=== PATIENT | female | born 1940 | race Caucasian/White ===

== ENCOUNTER 2017-05-21 07:29 | Emergency (ER) | payer MEDICARE ==
[~2017-05-21] VITALS: Ht 175.3 cm; Wt 104.3 kg
[~2017-05-21 07:29] MED LIST: ZOFRAN4 MG PO
[2017-05-21] MEDS ORDERED: GABAPENTIN400 MG PO (08:11)
[2017-05-21] MEDS ORDERED: ROSUVASTATIN CAL5 MG PO (08:11)
[2017-05-21] MEDS ORDERED: METOPROLOL SUCC50 MG PO (08:12)
[2017-05-21] MEDS ORDERED: FLOVENT HFA12 G1 INH (08:12)
[2017-05-21] MEDS ORDERED: OXYCODONE HCL5 MG PO (08:13)
[2017-05-21] MEDS ORDERED: METFORMIN HCL750 MG PO (08:13)
[2017-05-21] MEDS ORDERED: OMEPRAZOLE20 MG PO (08:13)
[2017-05-21] MEDS ORDERED: LANTUS SOL100 UNIT/1 SUB-Q (08:14)
[2017-05-21] MEDS ORDERED: LASIX20 MG PO (08:14)
[2017-05-21] MEDS ORDERED: VERAPAMIL ER240 MG PO (08:14)
[2017-05-21] MEDS ORDERED: LEVOTHYROXINE112 MCG PO (08:15)
[2017-05-21] MEDS ORDERED: LOSARTAN POTAS100 MG PO (08:15)
[2017-05-21] MEDS ORDERED: BETAMETHASONE D15 GM (08:15)
[2017-05-21] MEDS ORDERED: FLUOXETINE HCL20 MG (08:15)
[2017-05-21] MEDS ORDERED: FLUTICASONE PRO16 GM NAS (08:16)
[2017-05-21] MEDS ORDERED: MULTI-VITAMIN1 EACH PO (08:17)
[2017-05-21] MEDS ORDERED: CALCIUM + D3 E1 EACH PO (08:17)
[2017-05-21] MEDS ORDERED: ALEVE220 MG PO (08:18)
== END 2017-05-21 08:59 | disposition home or self-care (01) ==
LOC: ED 07:29
DX: R42 Dizziness and giddiness (principal); T42.6X5A Adverse effect of other antiepileptic and sedative-hypnotic drugs, initial encounter; E11.9 Type 2 diabetes mellitus without complications; I10 Essential (primary) hypertension; J45.909 Unspecified asthma, uncomplicated
CPT/HCPCS: 96374; 96375; 99282; J1200; J1885; J2405

== ENCOUNTER 2020-12-20 09:28 | Emergency (ER) | payer MEDICARE ==
[~2020-12-20] VITALS: Ht 175.3 cm; Wt 104.3 kg
[~2020-12-20 09:28] MED LIST changes: +ALEVE220 MG PO; +BETAMETHASONE D15 GM; +CALCIUM + D3 E1 EACH PO; +FLOVENT HFA12 G1 INH; +FLUOXETINE HCL20 MG; +FLUTICASONE PRO16 GM NAS; +GABAPENTIN400 MG PO; +LANTUS SOL100 UNIT/1 SUB-Q; +LASIX20 MG PO; +LEVOTHYROXINE112 MCG PO; +LOSARTAN POTAS100 MG PO; +METFORMIN HCL750 MG PO; +METOPROLOL SUCC50 MG PO; +MULTI-VITAMIN1 EACH PO; +OMEPRAZOLE20 MG PO; +OXYCODONE HCL5 MG PO; +ROSUVASTATIN CAL5 MG PO; +VERAPAMIL ER240 MG PO
[2020-12-20] MEDS ORDERED: HYDROCODON-ACE1 EAC8 PO (12:23)
[2020-12-20] MEDS ORDERED: ZOFRAN4 MG PO (12:23)
[2020-12-20] MEDS ORDERED: TRULICITY1.5 MG/0.5 SQ (12:47)
== END 2020-12-20 12:51 | disposition home or self-care (01) ==
LOC: ED 09:28
DX: S22.42XA Multiple fractures of ribs, left side, initial encounter for closed fracture (principal); W10.9XXA Fall (on) (from) unspecified stairs and steps, initial encounter; E11.9 Type 2 diabetes mellitus without complications; I10 Essential (primary) hypertension; J45.909 Unspecified asthma, uncomplicated; K21.9 Gastro-esophageal reflux disease without esophagitis; Z88.8 Allergy status to other drugs, medicaments and biological substances; Z79.899 Other long term (current) drug therapy; Z79.4 Long term (current) use of insulin
CPT/HCPCS: 71101; 99283-25

== ENCOUNTER 2022-04-19 08:49 | Emergency (ER) | payer MEDICARE ==
[~2022-04-19] VITALS: Ht 175.3 cm; Wt 104.3 kg
[~2022-04-19 08:49] MED LIST changes: +HYDROCODON-ACE1 EAC8 PO; +TRULICITY1.5 MG/0.5 SQ
--- OUTSIDE RECORDS SUMMARY | 2022-04-19 08:52 | XMS ---
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 Brian has no Care Guidelines for this patient. Chrissy VISIT COUNT (12 MO.) 1 JER Mac TOTAL 1 NOTE: Visits indicate total known visits. ED/UCC VISIT TRACKING (12 MO.) 04/19/2022 08:50 J[facility] [place] TYPE: Emergency COMPLAINT: - IV INFUSION FOR FLU SYMPTOMS INPATIENT VISIT TRACKING (12 MO.) No inpatient visits to display in this time frame [email or web address]
== END 2022-04-19 10:38 | disposition home or self-care (01) ==
LOC: ED 08:49
DX: U07.1 COVID-19 (principal); Z23 Encounter for immunization; E11.9 Type 2 diabetes mellitus without complications; I10 Essential (primary) hypertension; J45.909 Unspecified asthma, uncomplicated; K21.9 Gastro-esophageal reflux disease without esophagitis; Z88.8 Allergy status to other drugs, medicaments and biological substances; Z79.899 Other long term (current) drug therapy; Z79.84 Long term (current) use of oral hypoglycemic drugs; Z79.4 Long term (current) use of insulin
CPT/HCPCS: 96374; 99283-25

== ENCOUNTER 2024-08-21 06:30 | Day surgery (SDC) | payer MEDICARE ==
[~2024-08-21] VITALS: Ht 175.3 cm; Wt 93.2 kg
[~2024-08-21 06:30] MED LIST changes: +BAYER CHEWABLE81 MG PO; +CARDURA XL8 MG PO; +COZAAR100 MG PO; +HYDROCHLOROTHIA25 MG PO; +LACTATED RINGER'S 1,000 ML IV SCH; +PULMICORT FLEX90 MCG INH; +TENORMIN50 MG PO; +ZYRTEC10 MG PO
[2024-08-21] MEDS ORDERED: BUPIVACAINE HCL 0.25% 50 ML MDV ONE (06:40)
[2024-08-21 06:51] VITALS: BP 184/61
[2024-08-21] MEDS ORDERED: TRANEXAMIC ACID 2,000 MG in SODIUM CHLORIDE 0.9% 100 ML IV SCH (07:00)
[2024-08-21] MEDS ORDERED: CEFAZOLIN SODIUM 2 GM/20 ML SYR IV SCH (07:00)
[2024-08-21] MEDS ORDERED: LIDOCAINE HCL 1% 5 ML SDV INJ ONE (07:00)
[2024-08-21] MEDS ORDERED: IBLOOD GLUCOSE TEST STRIP 1 EA TEST VI PRN (07:00)
--- NOTE | 2024-08-21 07:41 | NUR ---
VISITED DURING SPIRITUAL CARE ROUNDS. PT SUPPORTED BY FRIEND IN ROOM. BOTH IN GOOD SPIRITS, DENIED IMMEDIATE NEEDS. GEAR HOBBER PROVIDED SUPPORTIVE PRESENCE, HOSPITALITY, PRAYER, FACILITATED INTERACTION WITH THERAPY ANIMAL. PT AND FRIEND EXPRESSED GRATITUDE.
[2024-08-21] MEDS ORDERED: LIDOCAINE HCL 2% 5 ML SDV ONE ×2 (07:44→07:46)
[2024-08-21] MEDS ORDERED: Ropivacaine HCl 0.5% 30 ML VIAL ONE (07:44)
[2024-08-21] MEDS ORDERED: propofoL 200 MG/20 ML VIAL ONE (07:44)
[2024-08-21] MEDS ORDERED: KETOROLAC TROMETHAMINE 30 MG/ML VIAL ONE (07:44)
[2024-08-21] MEDS ORDERED: ondansetron HCL 4 MG/2 ML VIAL ONE (07:44)
[2024-08-21] MEDS ORDERED: SODIUM CHLORIDE 0.9% 20 ML IV ONE (07:44)
[2024-08-21] MEDS ORDERED: HYDROCODONE/ACETA 5/325 TAB PO PRN (08:15)
[2024-08-21] MEDS ORDERED: HYDROCODON-ACE1 EA10 PO (09:02)
--- NOTE | 2024-08-21 09:11 | NUR ---
08/21/24 0910 Caty Novak 0858 PT ARRIVED TO PACU AWAKE AND TALKING TO RN, PT DENIES PAIN AND NAUSEA. PT REPORTS NUMB FINGER AND BLOCK INFORMATION GIVEN. 0907 PT SIPPING WATER AND HOB INCREASED. PT RESTING IN BED AND DENIES CONCERNS.
[2024-08-21 09:34] VITALS: BP 174/69
--- NOTE | 2024-08-21 11:56 | OR ---
[facility] [address], [place] [address] Signed DATE OF OPERATION: 08/21/2024 SURGEON: Micaela Sanchez MD PREOPERATIVE DIAGNOSIS: Mucous cyst, right long finger. POSTOPERATIVE DIAGNOSIS: Mucous cyst, right long finger. PROCEDURE PERFORMED: Excision of mucous cyst, right long finger. ROD BUSTER: None. ANESTHESIA: Digital block with MAC. TOURNIQUET TIME: 10 minutes. BRIEF HISTORY: Christin is an 84-year-old female with a mucous cyst on the right long finger that was breaking, opening and draining intermittently. Risks and benefits of operative excision were discussed with her and she elected to proceed. PROCEDURE IN DETAIL: Once consent was obtained, she was taken to the operating room, left on the day surgery bed with a hand table. The arm was prepped and draped in a standard sterile fashion. A finger tourniquet was fashioned out of the glove tip. This was rolled onto the finger and the cyst and overlying abnormal skin was excised in elliptical fashion. The extensor tendon was then elevated and the underlying osteophyte was removed using curettes and a small rongeur. All cystic components were removed as well. The wound was copiously irrigated with normal saline, closed with 3-0 nylon. The wound was covered with bacitracin, sterile gauze and gauze. A finger tourniquet was released. The patient was awakened, taken to the recovery room in satisfactory condition. All sponge, needle, and instrument counts were correct. Electronically Signed By: MICAELA SANCHEZ MD 08/21/24 1156 PATIENT NAME: CHRISTIN FIGUEROA OPERATIVE REPORT DATE OF : 44 REPORT #: [id number] PHYSICIAN: MICAELA SANCHEZ MD PCP: KORY BOYLE MD REPORT IS CONFIDENTIAL AND NOT TO BE RELEASED WITHOUT AUTHORIZATION [address] [address] Signed Micaela Sanchez MD BA/MODL /[id number] Copies: ~ Electronically Signed By: MICAELA SANCHEZ MD 08/21/24 1156 PATIENT NAME: CHRISTIN FIGUEROA OPERATIVE REPORT DATE OF : 44 REPORT #: [id number] PHYSICIAN: MICAELA SANCHEZ MD PCP: KORY BOYLE MD REPORT IS CONFIDENTIAL AND NOT TO BE RELEASED WITHOUT AUTHORIZATION
== END 2024-08-21 09:46 | disposition home or self-care (01) ==
LOC: DS 06:30
PROVIDERS: ATTEND Specialist
PROC: 0LB70ZZ Excision of Right Hand Tendon, Open Approach (ICD-10-PCS; principal; 2024-08-21 08:50)
DX: M67.441 Ganglion, right hand (principal); E11.9 Type 2 diabetes mellitus without complications; I10 Essential (primary) hypertension; E78.5 Hyperlipidemia, unspecified; K21.9 Gastro-esophageal reflux disease without esophagitis; Z87.891 Personal history of nicotine dependence; Z79.4 Long term (current) use of insulin; Z79.899 Other long term (current) drug therapy; Z88.8 Allergy status to other drugs, medicaments and biological substances; Z90.49 Acquired absence of other specified parts of digestive tract
CPT/HCPCS: 01810; J0690; J1885; J2001; J2405; J2704; J2795; J7121

== ENCOUNTER 2024-11-05 16:14 | Emergency (ER) | payer MEDICARE ==
[~2024-11-05] VITALS: Ht 175.3 cm; Wt 91.0 kg
[~2024-11-05 16:14] MED LIST changes: +HYDROCODON-ACE1 EA10 PO; -LACTATED RINGER'S 1,000 ML IV SCH
[2024-11-05] MEDS ORDERED: ASPIRIN 81 MG CHEW PO ONE (16:30)
[2024-11-05] MEDS ORDERED: ondansetron HCL 4 MG/2 ML VIAL IV ONE ×3 (16:30→19:45)
[2024-11-05] MEDS ORDERED: NITROGLYCERIN 0.4 MG SUBL SL PRN (16:30)
[2024-11-05 16:37] LABS: BASOPHILS 0.3 % (0-2); EOSINOPHILS 0.1 % (0-6); HEMATOCRIT 40.7 % (35.0-50.0); HEMOGLOBIN 13.8 g/dL (12.0-18.0); LYMPHOCYTES 10.2 % (24-44); MCH 31.5 (27-36); MCHC 33.9 g/dl (30-36); MCV 92.9 fl (81-99); MONOCYTES 13.9 % (0-12); NEUTROPHILS 75.5 % (39-80); PLATELET COUNT 179 K/uL (140-440); RBC 4.38 M/ul (4.3-5.7); RDW 13.3 (10.5-15.0)
[2024-11-05] MEDS ORDERED: PANTOPRAZOLE SODIUM 40 MG/10 ML VIAL IV ONE (16:45)
[2024-11-05] MEDS ORDERED: SODIUM CHLORIDE 0.9% 1,000 ML IV PRN (16:45)
[2024-11-05 16:57] LABS: ALBUMIN 3.6 g/dL (3.4-5.0); ALBUMIN/GLOBULIN RATIO 0.9 (1.1-2.4); ANION GAP 14.4 (7-21); BILIRUBIN, TOTAL 1.6 ng/dL (0.2-1.0); BUN/CREATININE RATIO 15.94 (6.0-28.6); CALCIUM 9.4 mg/dL (8.5-10.1); CREATININE, SERUM 0.69 mg/dL (0.55-1.02); MAGNESIUM 1.7 mg/dL (1.8-2.4); POTASSIUM 3.4 mmol/L (3.5-5.1); PROTEIN, TOTAL 7.6 g/dL (6.4-8.2)
[2024-11-05 18:53] LABS: INFLUENZA B NAA NEGATIVE (NEGATIVE); RESPIRATORY SYNCYTIAL VIR NAA NEGATIVE (NEGATIVE)
[2024-11-05] MEDS ORDERED: OSELTAMIVIR PHOSPHATE 75 MG HOME.PACK PO ONE (21:30)
[2024-11-05 21:38] LABS: BILIRUBIN, URINE NEGATIVE (negative); BLOOD/HGB, URINE TRACE-I (Negative); KETONE, URINE SMALL (Negative); LEUK ESTERASE, URINE NEGATIVE (negative); NITRITE, URINE NEGATIVE (negative)
[2024-11-05 21:44] LABS: BACTERIA, URINE 1+ /hpf (negative); CASTS, URINE NONE SEEN \\lpf; COLLECTION TYPE, URINE CLEAN CATCH; CRYSTALS, URINE NONE SEEN (0-1+); EPITHELIAL CELLS, URINE SQUAMOUS 1+ /lpf (0-1+); RED BLOOD CELLS, URINE 0-1 /hpf (0-5); REFLEX CULTURE, URINE No (No)
[2024-11-05] MEDS ORDERED: ACETAMINOPHEN 500 MG TAB PO ONE (21:45)
[2024-11-05] MEDS ORDERED: ONDANSETRON 4 MG HOME.PACK SL ONE (22:00)
[2024-11-05 22:27] VITALS: BP 137/80
--- NOTE | 2024-11-07 11:35 | EKG ---
[facility] [address] [facility] [place], [place] [address] Signed Sinus tachycardia Nonspecific ST and T wave abnormality Abnormal ECG When compared with ECG of 11-AUG-2024 10:39, No significant change was found Confirmed by Virgen Lee MD ([id number]) on 11/07/2024 11:34:48 AM Electronically Signed By: VIRGEN LEE MD 11/07/24 1135 PATIENT NAME: MARY ANN FIGUEROA Electrocardiogram DATE OF : 44 PHYSICIAN: VIRGEN LEE MD REPORT #: [id number] REPORT IS CONFIDENTIAL AND NOT TO BE RELEASED WITHOUT AUTHORIZATION
== END 2024-11-05 22:27 | disposition home or self-care (01) ==
LOC: ED 16:14
PROVIDERS: Emergency Medicine
DX: J10.1 Influenza due to other identified influenza virus with other respiratory manifestations (principal); R07.89 Other chest pain; N13.30 Unspecified hydronephrosis; E11.9 Type 2 diabetes mellitus without complications; I10 Essential (primary) hypertension; J45.909 Unspecified asthma, uncomplicated; K21.9 Gastro-esophageal reflux disease without esophagitis; Z88.8 Allergy status to other drugs, medicaments and biological substances; Z88.1 Allergy status to other antibiotic agents; Z79.4 Long term (current) use of insulin; Z79.85 Long-term (current) use of injectable non-insulin antidiabetic drugs; Z79.84 Long term (current) use of oral hypoglycemic drugs; Z79.82 Long term (current) use of aspirin; Z79.51 Long term (current) use of inhaled steroids; Z79.890 Hormone replacement therapy; Z79.899 Other long term (current) drug therapy
CPT/HCPCS: 36415; 71045; 71260; 74177; 80053; 81001; 83690; 83735; 83880; 84484; 85025; 87502; 93005; 93010; 96361; 96375; 96376; 99285-25; A9270; J2405; J2470; J7030; Q9967; U0002